=== PATIENT | male | born 1935 | race Caucasian/White ===

== ENCOUNTER → 2016-07-13 | Outpatient (CLI) | payer OTHER, BC ==
[~2016-07-13] VITALS: Ht 182.9 cm; Wt 61.2 kg
[~2016-07-13] MED LIST: ALLOPURINOL 10100 M1 PO; ALTACE10 M1 PO; ALTACE10 MG PO; AMBEREN PO; ASPIRIN EC81 M1 PO; ATIVAN1 MG; ATIVAN1 MG PO; BENZONATATE100 MG PO; CARDIZEM CD120 MG PO; CENTRUM SILVER1 EAC4 PO; CEPASTAT PO; CHLORTHALIDONE25 MG PO; COLACE100 MG PO; CYCLOBENZAPRINE5 MG PO; DILTIAZEM HCL60 MG PO; FINASTERIDE PO; FISHOIL PO; IBUPROFEN 200200 M1; IBUPROFEN 200200 M1 PO; LIPITOR 20 MG T20 M1 PO; LIPITOR20 MG PO; LIPITOR40 MG PO; LOMOTIL TABLET1 EACH PO; MULTI VITAMIN1 EACH PO; NORCO 5-325 TA1 EACH PO; NORVASC 5 MG TAB5 MG PO; OMEGA 3-6-9 11200 M1 PO; PEPCID AC20 M1 PO; PEPCID40 MG PO; PHENADOZ25 MG RECTAL; PHENERGAN 25 MG25 M1 PO; PRAVACHOL; PRAVACHOL40 MG PO; PREDNISONE 20 M20 MG PO; PREDNISONE50 MG PO; PROSCAR 5MG TABL5 M1 PO; QUALAQUIN324 MG PO; QUININE HCL1 GM PO; RA FISH OIL PO; RESTORIL15 MG PO; TIAZAC120 M1 PO; ZOFRAN 4 MG ORAL4 MG PO; ZOFRAN ODT4 MG PO; [UNRECOGNIZED DRUG - OTHER]
--- NOTE | ~2016-07-13 | P ---
[facility] [place] [address] PROCEDURE REPORT Name: JOSEE ZELAYA Room #: REG [facility]#: [id number] Admission: 07/13/16 Attend Phys: Sherman Torre MD Discharge: Date of : 35 Report #: [id number] THIS REPORT FOR: //name// CC: Sherman Jorgensen BRIEF HISTORY: This patient is an 80-year-old male for average risk screening colonoscopy. PREOPERATIVE DIAGNOSIS: Average risk screening colonoscopy. POSTOPERATIVE DIAGNOSES: 1. Diminutive polyp, proximal ascending colon. 2. Moderate sigmoid diverticulosis coli. 3. Small internal hemorrhoids. MEDICATIONS: Deep sedation with propofol per anesthesia. SPECIMEN: Proximal ascending colon polyp. ESTIMATED BLOOD LOSS: 3 mL. PROCEDURE: Colonoscopy to cecum and terminal ileum. COMPLICATIONS: None. FINDINGS: Prior to propofol sedation, procedure of colonoscopy discussed with the patient as well as potential risks and its complications. He indicates he understands and desires to proceed. DESCRIPTION OF PROCEDURE: With the patient in left lateral decubitus position, digital examination was completed which revealed no abnormalities. Subsequently, [email or web address] video colonoscope was introduced into the rectum, advanced under direct vision to the cecum. Done with minimal difficulty. Cecum was identified by the ileocecal valve and the appendiceal orifice. I was able to visualize the distal segment of terminal ileum, which was inspected and noted to be unremarkable. At that point, the scope was slowly withdrawn and careful circumferential views obtained including retroflexing the scope in the ascending colon. Upon slow withdrawal of the scope, the prep was noted to be excellent. The mucosa was within normal limits, normal vascular pattern, normal light reflex. As we withdrew the scope, a diminutive polyp seen and removed by biopsy from the proximal ascending colon. Scope was further withdrawn and no additional polyps were seen. In the left colon, in particular the sigmoid colon, there was moderate sigmoid diverticular disease without endoscopic evidence of diverticulitis. Scope was withdrawn in the rectum. Upon retroflexion, small internal hemorrhoids were seen. Scope was withdrawn. [facility] [address] [place] [address] PROCEDURE REPORT Name: JOSEE ZELAYA [place] Room #: REG [facility] M..#: [id number] Admission: 07/13/16 Attend Phys: Sherman Torre MD Discharge: Date of : 35 Report #: [id number] patient tolerated the procedure well. CONDITION OF THE PATIENT UPON DISCHARGE: Following procedure, the patient drowsy, aroused, conversant and will be discharged home when fully ambulatory. INSTRUCTIONS TO THE PATIENT AND FAMILY AT THE TIME OF DISCHARGE: We will follow up on the pathology of the polyp. However, at this point in life, there is not likely be of significant benefit from routine surveillance or screening colonoscopy. However, if the patient develops any specific problems, colonoscopy could be done for those specific indications. He is to return to the care of Dr. Ronald Jorgensen and return to see me as needed. Last colonoscopy was 10 years ago. Withdrawal time from the cecum was 13 minutes. By: [id number] Sherman Torre MD /nt
== END | disposition home or self-care (01) ==
LOC: GI 08:33
DX: Z12.11 Encounter for screening for malignant neoplasm of colon (principal); D12.2 Benign neoplasm of ascending colon; K57.30 Diverticulosis of large intestine without perforation or abscess without bleeding; K64.8 Other hemorrhoids; F32.9 Major depressive disorder, single episode, unspecified; F41.9 Anxiety disorder, unspecified; Z87.891 Personal history of nicotine dependence; I10 Essential (primary) hypertension; E78.00 Pure hypercholesterolemia, unspecified; I49.9 Cardiac arrhythmia, unspecified; Z85.828 Personal history of other malignant neoplasm of skin; M10.9 Gout, unspecified; Z98.890 Other specified postprocedural states